=== PATIENT | male | born 1965 | race Caucasian/White ===

== ENCOUNTER 2020-09-02 10:43 | Emergency (ER) | payer BC ==
--- NOTE | 2020-09-02 11:07 | ED.PDOC ---
History of Present Illness - General Time Seen by Provider: 09/02/20 11:03 Source: patient, RN notes reviewed, Vital Signs reviewed Additional Information: Male patient, presents to the ER because of shortness of breath, this patient was diagnosed with COVID-19 about a week ago he is on day 10 of symptoms, patient went to the ER yesterday, they did an x-ray that did not show pneumonia, he was treated for strep throat. Patient woke up this morning with a sensation that he could not breathe, so he decided to come in to get himself checked, patient arrived POV able to walk with a steady gait able to speak in long complete sentences does not appear in any respiratory distress. He is pulse oximetry at home was 92% here was 95% on room air He appears very anxious because he has lost some friends due to this disease - History of Present Illness Timing/Duration: other - 10 dayas Improving Factors: nothing Worsening Factors: nothing Associated Symptoms: fever/chills, shortness of breath Home Medications: Ambulatory Orders Albuterol Inhaler [Ventolin Hfa Inhaler] 8 gm INH Q6HRS 1 Days #1 inh 09/02/20 Benzonatate Perles [Tessalon Perles] 100 mg PO TID #20 cap 09/02/20 NK 09/02/20 guaiFENesin W/CODEINE LIQ [Robitussin AC] 5 ml PO Q6HRS 5 Days 09/02/20 Review of Systems - Review of Systems Constitutional: States: fever EENTM: States: no symptoms reported Respiratory: States: short of breath Cardiology: States: no symptoms reported Genitourinary: States: no symptoms reported Musculoskeletal: States: no symptoms reported Skin: States: no symptoms reported Neurological: States: no symptoms reported Endocrine: States: no symptoms reported Hematologic/Lymphatic: States: no symptoms reported Physical Exam - Physical Exam General Appearance: Well Developed, Well Groomed, Well Hydrated, Well Nourished Eye Exam: bilateral normal Ears, Nose, Throat: hearing grossly normal, normal ENT inspection, normal pharynx Neck: non-tender Respiratory: chest non-tender, lungs clear, normal breath sounds, no respiratory distress, no accessory muscle use Cardiovascular/Chest: normal peripheral pulses, no edema, no gallop, no JVD, no murmur Peripheral Pulses: radial,right: 2+, radial,left: 2+ Gastrointestinal/Abdominal: normal bowel sounds, non tender, soft, no organomegaly, no pulsatile mass Back Exam: normal inspection, no CVA tenderness, no vertebral tenderness Extremity: normal range of motion, non-tender, normal inspection, no pedal edema, no calf tenderness 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, no motor/sensory deficits, alert, normal mood/affect, oriented x 3 Skin Exam: normal color, warm/dry Lymphatic: no adenopathy Progress - Progress Progress: Patient presents to the ER because of shortness of breath, patient has been diagnosed with COVID-19, physically patient is able to speak in complete sentenc es 95% on room air , no tachypnea, this patient is a candidate for bamlanvimab, since patient already had an x-ray that did not show pneumonia, patient not requiring oxygen, I feel that this patient will benefit f home, and since patient will not be admitted and he is 10 days into his disease he feels the criteria for the infusion patient will be observed int the ER For 2 hours after the infusion, for any development of allergy reaction Returnt to the ER if Chest pain shortness of breath increased work of breathing breathing heart beating fast unable to speak in long complete sentences due to shortness of breath or any other concer 09/02/20 11:08 Departure - Departure Clinical Impression: COVID-19 Disposition: Discharge to Home or Self Care Condition: Fair Instructions: Coronavirus Disease 2019 (COVID-19) (DC) Diet: regular diet Activity: increase activity as tolerated Prescriptions: guaiFENesin W/CODEINE LIQ [Robitussin AC] 5 ml PO Q6HRS 5 Days Albuterol Inhaler [Ventolin Hfa Inhaler] 8 gm INH Q6HRS 1 Days #1 inh Benzonatate Perles [Tessalon Perles] 100 mg PO TID #20 cap Home Medications: Ambulatory Orders Albuterol Inhaler [Ventolin Hfa Inhaler] 8 gm INH Q6HRS 1 Days #1 inh 09/02/20 Benzonatate Perles [Tessalon Perles] 100 mg PO TID #20 cap 09/02/20 NK 09/02/20 guaiFENesin W/CODEINE LIQ [Robitussin AC] 5 ml PO Q6HRS 5 Days 09/02/20 Additional Instructions: Returnt to the ER if Chest pain shortness of breath increased work of breathing breathing heart beating fast unable to speak in long complete sentences due to shortness of breath or any other concern
[2020-09-02] MEDS ORDERED: SODIUM CHLORIDE 0.9% 250ML 250 ML ONE (11:20)
[2020-09-02 11:38] VITALS: O2SAT 94
[2020-09-02 13:33] VITALS: BP 128/82; TEMP 98.5
== END 2020-09-02 13:41 | disposition home or self-care (01) ==
LOC: ER 10:43
DX: U07.1 COVID-19 (principal); Z23 Encounter for immunization
CPT/HCPCS: J7050; M0239